=== PATIENT | male | born 1990 | race Two or more races ===

== ENCOUNTER 2023-07-05 22:29 | Emergency (ER) | payer OTHER ==
[~2023-07-05] VITALS: Ht 175.3 cm; Wt 68.9 kg
[2023-07-05 22:45] VITALS: TEMP 98
[2023-07-06 01:11] VITALS: BP 148/79; O2SAT 98
== END 2023-07-06 01:11 | disposition home or self-care (01) ==
LOC: ER 22:31
DX: F10.10 Alcohol abuse, uncomplicated (principal); E11.9 Type 2 diabetes mellitus without complications; R06.02 Shortness of breath; Y90.9 Presence of alcohol in blood, level not specified
CPT/HCPCS: 82962-TC